=== PATIENT | female | born 1990 | race Caucasian/White ===

== ENCOUNTER → 2016-09-26 | Outpatient (CLI) | payer BC ==
[~2016-09-26] MED LIST: ACET-1256 PO; IBUP200T52 PO
== END | disposition home or self-care (01) ==
LOC: C.PAPS 11:20
PROVIDERS: ATTEND Physician Assistant
DX: Z01.419 Encounter for gynecological examination (general) (routine) without abnormal findings (principal)

== ENCOUNTER → 2017-01-28 | Outpatient (CLI) | payer BC ==
[2017-01-28 15:44] LABS: URINE APPEARANCE CLEAR (CLEAR); URINE BILIRUBIN NEG (NEG); URINE COLOR YELLOW; URINE NITRITE NEG (NEG); URINE PH 6.5 (4.5-7.5); URINE SPECIFIC GRAVITY 1.011 (1.000-1.030); UROBILINOGEN NEG (NEG)
[2017-01-28 15:52] LABS: MANUAL MICROSCOPIC REQUIRED? NO; REVIEW REQ? NO
== END | disposition home or self-care (01) ==
LOC: C.LAB1850 10:45
PROVIDERS: ATTEND Obstetrics & Gynecology
DX: Z34.01 Encounter for supervision of normal first pregnancy, first trimester (principal)

== ENCOUNTER 2017-02-08 19:06 | Emergency (ER) | payer BC ==
[~2017-02-08] VITALS: Ht 170.2 cm; Wt 75.6 kg
[2017-02-08 19:11] VITALS: Ht 170.2 cm; Wt 75.6 kg
[2017-02-08] MEDS ORDERED: IBUP200T52 PO (19:24)
[2017-02-08] MEDS ORDERED: ACET-1256 PO (19:24)
[2017-02-08] MEDS ORDERED: MoRPHine SULFATE 4 MG/ML 1 ML CARP\\VIAL IV STA (19:26)
[2017-02-08] MEDS ORDERED: SODIUM CHLORIDE 0.9% 1000ML 1,000 ML IV STA (19:26)
[2017-02-08] MEDS ORDERED: ONDANSETRON INJ 2 MG/ML 2 ML VIAL IV STA (19:26)
[2017-02-08 19:49] LABS: BASO % 0.2 %; BASO ABS # 0.02 K/uL (0-0.2); COMPLETE YES; EOS % 0.3 %; HEMATOCRIT 39.7 % (37-47); IG% 0.3 %; LYMPH % 11.9 %; LYMPH ABS # 1.37 K/uL (1.2-3.4); MEAN CORPUSCULAR HEMOGLOBIN 31.3 pg (25-34); MEAN CORPUSCULAR HGB CONC 34.8 g/dl (32-36); MEAN PLATELET VOLUME 8.3 fL (7.4-10.4); MONO % 6.2 %; NEUT % 81.1 %; PLATELET COUNT 234 K/uL (130-400); RED BLOOD COUNT 4.41 M/uL (4.2-5.4); WHITE BLOOD COUNT 11.56 K/uL (4.8-10.8)
[2017-02-08 20:05] LABS: BUN/CREATININE RATIO 10.1 (10-20); CALCIUM 8.8 mg/dl (8.5-10.1); CREATININE 0.87 mg/dl (0.60-1.20); POTASSIUM 3.5 mmol/L (3.5-5.1)
--- NOTE | 2017-02-08 20:55 | DIAGNOSTIC IMAGING REPORT ---
PELVIC ULTRASOUND INCLUDING TRANSABDOMINAL AND ENDOVAGINAL SCANNING CLINICAL HISTORY: . Vaginal bleeding. COMPARISON STUDY: No previous studies for comparison. FINDINGS: The uterus measures 8.9 x 5.4 x 6.4 cm. The endometrial stripe measures 17 mm and is heterogeneous. A normal intrauterine gestational sac is not visualized. There is 18 mm cystic focus within the lower cervix,. This could represent a nabothian gland cysts, or potentially a low-lying gestational sac. The right ovary measures 38 x 15 x 20 mm and contains a 16 mm corpus luteum. The left ovary measures 29 x 14 x 23 mm. IMPRESSION: 1. A normal intrauterine gestational sac is not visualized 2. 18 mm cystic focus in the lower cervix. This likely represents either a nabothian gland cyst or potentially a low-lying gestational sac 3. Correlation with serial quantitative beta hCGs is recommended Electronically signed by: Alfredo Molina M.D. 02/08/2017 8:54 PM Dictated Date/Time: 02/08/2017 8:51 PM
--- NOTE | 2017-02-08 21:52 | EMERGENCY ROOM VISIT NOTE ---
History Report prepared by Aamir: Magdalene Clay Under the Supervision of: Dr. Ernesto Billings D.O. First contact with patient: 19:18 Chief Complaint: ED VAG BLEEDING Stated Complaint: CRAMPING, EXTREME PAIN, BLEEDING, 6WKS PREG History of Present Illness The patient is a 27 year old female who presents to the Emergency Room with complaints of persistent vaginal bleeding that started 2 days ago. The patient rates her pain an 8/10 in severity. The patient states that she has been miscarrying. She notes that she received an ultrasound a week and a half ago and her was at 6 weeks. She reports that she received a second ultrasound 2 days ago and was reported as a miscarriage. The patient states that the vaginal bleeding started becoming heavy 5 hours ago. She notes that she was experiencing sharp lower abdominal pain. She states that she took ibuprofen and Tylenol for her pain but she is still experiencing sharp pain. The patient notes that she has been experiencing nausea and vomiting. She reports that her last menstrual period was November 12, 2016. Source of History: patient Onset: 2 days ago Position: other (vaginal bleeding) Symptom Intensity: 8/10 Quality: sharp Timing: worsening Associated Symptoms: + nausea, + vomiting, + abdominal pain Review of Systems See HPI for pertinent positives & negatives. A total of 10 systems reviewed and were otherwise negative. Family History Hypertension Social History Smoking Status: Never Smoker Alcohol Use: occasionally Marital Status: Housing Status: lives with significant other Occupation Status: employed Current/Historical Medications Scheduled PRN Acetaminophen (Tylenol), 1,000 MG PO Q4 PRN for Pain Ibuprofen (Advil), 800 MG PO Q6 PRN for Pain Allergies Coded Allergies: No Known Allergies (Unverified , 02/08/17) Physical Exam Vital Signs Date Time Temp Pulse Resp B/P (MAP) Pulse Ox O2 Delivery O2 Flow Rate FiO2 02/08/17 21:00 64 18 104/51 97 Room Air 02/08/17 19:11 36.8 53 18 111/71 99 Room Air Physical Exam CONSTITUTIONAL/VITAL SIGNS: Reviewed / noted above. GENERAL: Non-toxic in appearance. INTEGUMENTARY: Warm, dry, and Chauncey. HEAD: Normocephalic. EYES: without scleral icterus or trauma. ENT/OROPHARYNX: clear and moist. LYMPHADENOPATHY/NECK: Is supple without lymphadenopathy or meningismus. RESPIRATORY: Lungs clear and equal. CARDIOVASCULAR: Regular rate and rhythm. GI/ABDOMEN: Soft and nontender. No organomegaly or pulsatile mass. No rebound or guarding. Normal bowel sounds. EXTREMITIES: Warm and well perfused. BACK: No CVA tenderness. NEUROLOGICAL: Intact without focal deficits. PSYCHIATRIC: normal affect. MUSCULOSKELETAL: Normally developed with good muscle tone. Medical Decision & Procedures ER Provider Diagnostic Interpretation: Radiology results as stated below per my review and radiologist interpretation: PELVIC ULTRASOUND INCLUDING TRANSABDOMINAL AND ENDOVAGINAL SCANNING CLINICAL HISTORY: . Vaginal bleeding. COMPARISON STUDY: No previous studies for comparison. FINDINGS: The uterus measures 8.9 x 5.4 x 6.4 cm. The endometrial stripe measures 17 mm and is heterogeneous. A normal intrauterine gestational sac is not visualized. There is 18 mm cystic focus within the lower cervix,. This could represent a nabothian gland cysts, or potentially a low-lying gestational sac. The right ovary measures 38 x 15 x 20 mm and contains a 16 mm corpus luteum. The left ovary measures 29 x 14 x 23 mm. IMPRESSION: 1. A normal intrauterine gestational sac is not visualized 2. 18 mm cystic focus in the lower cervix. This likely represents either a nabothian gland cyst or potentially a low-lying gestational sac 3. Correlation with serial quantitative beta hCGs is recommended Electronically signed by: Alfredo Molina M.D. 02/08/2017 8:54 PM Dictated Date/Time: 02/08/2017 8:51 PM Laboratory Results 02/08/17 19:40 Red Blood Count 4.41, Mean Corpuscular Volume 90.0, Mean Corpuscular Hemoglobin 31.3, Mean Corpuscular Hemoglobin Concent 34.8, Mean Platelet Volume 8.3, Neutrophils (%) (Auto) 81.1, Lymphocytes (%) (Auto) 11.9, Monocytes (%) (Auto) 6.2, Eosinophils (%) (Auto) 0.3, Basophils (%) (Auto) 0.2, Neutrophils # (Auto) 9.38, Lymphocytes # (Auto) 1.37, Monocytes # (Auto) 0.72, Eosinophils # (Auto) 0.04, Basophils # (Auto) 0.02 02/08/17 19:40 Test 02/08/17 19:40 White Blood Count 11.56 K/uL (4.8-10.8) Red Blood Count 4.41 M/uL (4.2-5.4) Hemoglobin 13.8 g/dL (12.0-16.0) Hematocrit 39.7 % (37-47) Mean Corpuscular Volume 90.0 fL (80-100) Mean Corpuscular Hemoglobin 31.3 pg (25-34) Mean Corpuscular Hemoglobin Concent 34.8 g/dl (32-36) Platelet Count 234 K/uL (130-400) Mean Platelet Volume 8.3 fL (7.4-10.4) Neutrophils (%) (Auto) 81.1 % Lymphocytes (%) (Auto) 11.9 % Monocytes (%) (Auto) 6.2 % Eosinophils (%) (Auto) 0.3 % Basophils (%) (Auto) 0.2 % Neutrophils # (Auto) 9.38 K/uL (1.4-6.5) Lymphocytes # (Auto) 1.37 K/uL (1.2-3.4) Monocytes # (Auto) 0.72 K/uL (0.11-0.59) Eosinophils # (Auto) 0.04 K/uL (0-0.5) Basophils # (Auto) 0.02 K/uL (0-0.2) RDW Standard Deviation 38.6 fL (36.4-46.3) RDW Coefficient of Variation 11.8 % (11.5-14.5) Immature Granulocyte % (Auto) 0.3 % Immature Granulocyte # (Auto) 0.03 K/uL (0.00-0.02) Anion Gap 8.0 mmol/L (3-11) Est Creatinine Clear Calc Drug Dose 104.9 ml/min Estimated GFR () 107.3 Estimated GFR (Non- 92.6 BUN/Creatinine Ratio 10.1 (10-20) Calcium Level 8.8 mg/dl (8.5-10.1) Human Chorionic Gonadotropin, Quant 08264 mIU/mL Laboratory results as stated above per my review. Medications Administered Medications (Trade) Dose Ordered Sig/Felipe Route Start Time Stop Time Status Last Admin Dose Admin Morphine Sulfate (MoRPHine SULFATE INJ) 4 mg NOW STAT IV 02/08/17 19:26 02/08/17 19:28 DC 02/08/17 19:47 4 MG Ondansetron HCl (Zofran Inj) 4 mg NOW STAT IV 02/08/17 19:26 02/08/17 19:28 DC 02/08/17 19:47 4 MG Sodium Chloride 1,000 ml @ 999 mls/hr Q1H1M STAT IV 02/08/17 19:26 02/08/17 20:26 DC 02/08/17 19:47 999 MLS/HR ED Course 191: Previous medical records were reviewed. The patient was evaluated in room C8. A complete history and physical examination was performed. 1925: Sodium Chloride 1000 ml @ 999 mls/hr IV, Zofran Inj 4 mg IV, Morphine Sulfate 4 mg IV. Medical Decision Differential diagnosis: Etiologies such as ectopic , dysfunction uterine bleeding, bleeding dyscrasia, trauma, infection, as well as others were entertained. This is a 27-year-old female who presents to the ED with a chief complaint of a miscarriage. The patient was told she was 6 weeks about 10 days ago. She states that she has not had progressive her and she was seen on Thursday by Dr. Mendez who told her she was having a miscarriage. The patient had increased cramping and bleeding today and came to the ED for her discomfort. Previous review of records reveal she has a positive blood type. She has had heavy bleeding for the past 5 hours. The patient's exam was unremarkable. Her last menstrual. Was November 12 prior to this bleeding. HCG today is 12,849. PRP and CBC are unremarkable. The patient was treated with IV morphine, IV Zofran and IV fluids. She was feeling better. Ultrasound suggested a cystic structure in the lower cervix. There is no intrauterine gestational sac. The patient was felt to be stable for discharge. I did speak with Dr. Pastor about the patient. He recommended she call for follow-up on Thursday. Medication Reconcilliation Current Medication List: was personally reviewed by me Blood Pressure Screening Patient's blood pressure: Normal blood pressure Impression Primary Impression: Miscarriage Scribe Attestation The scribe's documentation has been prepared under my direction and personally reviewed by me in its entirety. I confirm that the note above accurately reflects all work, treatment, procedures, and medical decision making performed by me. 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 Call tomorrow for an appointment for follow-up.
[2017-02-08 22:10] VITALS: BP 105/55; PULSE 65; TEMP 36.6; O2SAT 97
== END 2017-02-08 22:11 | disposition home or self-care (01) ==
LOC: C.EDB 19:10 → C.EDC 22:11
DX: O03.9 Complete or unspecified spontaneous abortion without complication (principal); Z82.49 Family history of ischemic heart disease and other diseases of the circulatory system